=== PATIENT | male | born 1965 | race Caucasian/White ===

== ENCOUNTER 2019-08-09 10:28 | Emergency (ER) | payer MEDICARE ==
[2019-08-09] MEDS ORDERED: Ibuprofen TAB* 600 MG PO ONE (10:33)
--- NOTE | 2019-08-09 10:33 | ED ---
Upper Extremity Pain - HPI Summary HPI Summary: This pt is a 54 y/o male presenting to [facility] via EMS for right wrist pain s/p fall today. Pt reports he fell off his electric scooter today and stretched out his right arm to catch himself injuring his right wrist. Denies head strike or LOC. He currently rates his right wrist pain 7/10 in severity. Denies any other injuries today. Denies headache, back pain, neck pain. 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 PMHx: HTN, prior injuries to C-spine, left wrist fracture. Pt was started on Lisinopril a couple of months ago. He also takes Wellbutrin. Denies tobacco, drug, or alcohol use. Allergic to Clindamycin. Medications reviewed. Allergies noted. - History of Current Complaint Stated Complaint: POSS RIGHT WRIST FRACTURE PER EMS Hx Obtained From: Patient Mechanism Of Injury: Fall From Height Of: - electric scooter Onset/Duration: Started Minutes Ago, Traumatic, Still Present Timing: Lasting Minutes Severity Currently: Moderate Pain Location: Wrist - right Aggravating Factor(s): Movement Alleviating Factor(s): Nothing Associated Signs & Symptoms: Negative: Fever, Back Pain, Other - neck pain, LOC , headache - Allergies/Home Medications Allergies/Adverse Reactions: Allergies Allergy/AdvReac Type Severity Reaction Status Date / Time clindamycin Allergy Anaphylatic Verified 08/09/19 10:36 Shock Home Medications: Home Medications Lisinopril TAB* [Prinivil TAB*] 10 mg PO DAILY 08/09/19 [History Confirmed 08/09] buPROPion TAB* [Wellbutrin TAB*] 30 mg PO BID 08/09/19 [History Confirmed ] PMH/Surg Hx/FS Hx/Imm Hx Endocrine/Hematology History: Denies: Hx Diabetes Cardiovascular History: Reports: Hx Hypertension Musculoskeletal History: Reports: Hx of Fracture(s) - left wrist - Surgical History Surgical History: Yes Surgery Procedure, Year, and Place: Surgery to bilateral hands for tendinitis - Family History Known Family History: Positive: Non-Contributory - Social History Occupation: Unemployed - 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 (-) Distressed Skin: Warm, Dry HENT: Normocephalic; Atraumatic Eyes: Conjunctiva normal Neck: Musculoskeletal ROM normal neck. (-) JVD, (-) Stridor, (-) Tracheal deviation Cardio: Rhythm regular, rate normal, Heart sounds normal; Intact distal pulses; The pedal pulses are 2+ and symmetric. Radial pulses are 2+ and symmetric. (-) Murmur Pulmonary/Chest wall: Effort normal. (-) Respiratory distress, (-) Wheezes, (-) Rales Abd: Soft, (-) tenderness, (-) Distension, (-) Guarding, (-) Rebound Musculoskeletal: Slight deformity of right wrist with tenderness to palpation. Radial pulse 2+. No proximal tenderness. Lymph: (-) Cervical adenopathy Neuro: Alert, Oriented x3 Psych: Mood and affect Normal Triage Information Reviewed: Yes Vital Signs On Initial Exam: Initial Vitals Temp Pulse Resp BP Pulse Ox 98.8 F 78 18 148/104 98 08/09/19 10:31 08/09/19 10:31 08/09/19 10:31 08/09/19 10:31 08/09/19 10:31 Vital Signs Reviewed: Yes Procedures - Procedure Summary Procedure Summary: Hematoma Block Procedure Note Location: Right radius Used 10 CC of 1% lidocaine Hung fingers from the finger traps Patient tolerated the procedure well Pre and post procedure patient is neurovascular intact - Sedation Patient Received Moderate/Deep Sedation with Procedure: No - Splinting Right Upper Extremity Location: right wrist Hand-Made Type: orthoglass Splint: volar Pre-Proc Neuro Vasc Exam: normal Post-Proc Neuro Vasc Exam: normal Splint Applied by Provider: Terrence [facility] - Laboratory Lab Statement: Any lab studies that have been ordered have been reviewed, and results considered in the medical decision making process. - Radiology Right elbow XR Radiology Interpretation Completed By: Radiologist Summary of Radiographic Findings: IMPRESSION: #. Negative for joint effusion, fracture, or articular malalignment. #. Preserved joint spaces. #. Unremarkable soft tissue contours. Dr. Bess has reviewed this report. Right wrist XR Radiology Interpretation Completed By: Radiologist Summary of Radiographic Findings: IMPRESSION: #. Comminuted fracture at the distal metaphysis through articular surface of the radius with disproportionate dorsal impaction with resulting doral tilt of the distal radial articular space. #. No definitive associated fracture of the ulna evident however overlying extrinsic materal limits conspicuity of the ulnar styloid on the AP view. #. Negative for dislocation. #. Soft tissue swelling without significant focality. Dr. bess has reviewed this report. Right wrist XR s/p splint Radiology Interpretation Completed By: Radiologist Summary of Radiographic Findings: IMPRESSION: 1. Comminuted impacted intra- articular fracture of the distal radius, unchaged. 2. Displaced fracture of the ulnar styloid process. Dr. Bess has reviewed this report. Course/Dx - Course Course Of Treatment: Patient is here after falling off his electric skateboard. Patient sustained a right wrist injury. Patient had no other injuries and did not hit his head. Patient had a distal radius fracture. A hematoma block was performed and patient's fingers were hung in the finger traps. Patient had a splint applied. Patient's fracture did not greatly reduce and patient was eager for discharge. Patient will follow-up with orthopedic surgery for further management. Patient did request pain management. After patient was discharged, the pharmacist at [facility] called here to state he did a [employer]SEM[employer] request for [place] and patient regularly fills his oxycodone prescription including on July 19. Patient states he forgot that at home but the story does not seem believable as he has been filling his prescription every month and is a chronic pain patient. Patient did deny this on his visit here. - Diagnoses Provider Diagnoses: Right wrist fracture Discharge ED - Sign-Out/Discharge Documenting (check all that apply): Patient Departure - Discharge home - Discharge Plan Condition: Stable Disposition: HOME Prescriptions: Hydrocodone/Acetaminophen [Seaman 10-325 Tablet] 1 each PO Q8HR PRN #15 tablet MDD 3 tablets PRN Reason: Pain - Severe Patient Education Materials: Wrist Fracture in Adults (ED) Referrals: [facility] [Outside] Franck Fajardo MD [Medical Doctor] - Additional Instructions: Take Motrin 600 mg every 6 hours as needed for the pain. Take prescribed medications if Motrin is not working. Call and follow up with Dr. Fajardo, orthopedist, in the next 1-3 days. PLEASE RETURN TO EMERGENCY DEPARTMENT FOR ANY SEVERE PAIN IN WRIST, IF SPLINT FALLS OFF, IF FINGERS TURN NUMB, OR ANY OTHER CONCERNING SYMPTOMS. - Billing Disposition and Condition Condition: STABLE Disposition: Home - Attestation Statements Document Initiated by Ramon: Yes Documenting Scribe: Naomi Schofield Provider For Whom Scribe is Documenting (Include Credential): Terrence Bess MD Scribe Attestation: Naomi Paniagua, scribed for Terrence Bess MD on 08/09/19 at 1853. Scribe Documentation Reviewed: Yes Provider Attestation: The documentation as recorded by the Naomi gates accurately reflects the service I personally performed and the decisions made by , Terrence Bess MD Status of Scribe Document: Viewed
[2019-08-09] MEDS: HYDROcodone/ACETAMIN 5-325 MG* 1 TAB PO ONE ×2 (10:50→11:07)
[2019-08-09] MEDS ORDERED: HYDROcodone/ACETAMIN 5-325 MG* 1 TAB PO ONE (10:57)
[2019-08-09] MEDS ORDERED: Lidocaine 1% MPF ** 5 ML VIAL INJ ONE (10:57)
[2019-08-09] MEDS ORDERED: oxyCODONE TAB* 5 MG TAB PO ONE (12:03)
[2019-08-09 12:24] VITALS: BP 158/90
== END 2019-08-09 12:23 | disposition home or self-care (01) ==
LOC: ED 10:28
DX: S52.591A Other fractures of lower end of right radius, initial encounter for closed fracture (principal); S52.611A Displaced fracture of right ulna styloid process, initial encounter for closed fracture; V00.131A Fall from skateboard, initial encounter; Y93.51 Activity, roller skating (inline) and skateboarding; Y92.9 Unspecified place or not applicable; I10 Essential (primary) hypertension; Z79.899 Other long term (current) drug therapy; Z88.1 Allergy status to other antibiotic agents
CPT/HCPCS: 99282; A9270-GY

== ENCOUNTER 2019-08-20 17:39 | Emergency (ER) | payer MEDICARE ==
--- NOTE | 2019-08-20 18:02 | ED ---
Upper Extremity Pain - HPI Summary HPI Summary: Patient complains of new area of swelling and ecchymosis proximal to right forearm splint placed here at [facility] 08/09/19 for wrist fracture status post mechanical fall 08/09/19. . Denies pain at site. Also complains of ecchymotic right big toe toenail and inflammation status post same mechanical fall. Denies pain at toe. Ambulating normally. Patient missed follow-up appointment with Dr. Romano orthopedics, has new appointment on August 26. Denies new trauma, loss of sensation or function in the fingers of right hand. Fever, cough, sore throat, CP, SOB, V/V Carrillo pain, change in urine, change in BM. No anti-coag. No history of blood clots. - History of Current Complaint Chief Complaint: EDExtremityUpper Stated Complaint: CHECK RT ARM PER PT Time Seen by Provider: 08/20/19 17:54 Hx Obtained From: Patient Mechanism Of Injury: Fall From A Standing Position Timing: Constant Severity Currently: None Pain Location: Forearm Aggravating Factor(s): Nothing Alleviating Factor(s): Nothing Associated Signs & Symptoms: Positive: Swelling, Bruising - Allergies/Home Medications Allergies/Adverse Reactions: Allergies Allergy/AdvReac Type Severity Reaction Status Date / Time clindamycin Allergy Severe Anaphylatic Verified 08/15/19 14:06 Shock PMH/Surg Hx/FS Hx/Imm Hx Endocrine/Hematology History: Denies: Hx Diabetes Cardiovascular History: Reports: Hx Hypertension - on meds for, Other Cardiovascular Problems/Disorders - had stress test a few years ago due to htn History: Denies: Hx Dialysis Musculoskeletal History: Reports: Hx Arthritis - neck, shoulder, knees, feet, Hx Tendonitis - right foot, wrists, Other Musculoskeletal History - right foot microtears from injury 2 months ago Sensory History: Reports: Hx Contacts or Glasses - glasses Denies: Hx Hearing Aid Opthamlomology History: Reports: Hx Contacts or Glasses - glasses EENT History: Denies: Hx Deafness Neurological History: Reports: Hx Headaches - migraines as noted above, Hx Migraine - hx of - takes pain meds for, Other Neuro Impairments/Disorders - hand numbness from neck fxs Psychiatric History: Reports: Hx Anxiety - stressed with recent move and injury , Hx Depression - on meds for - Surgical History Surgery Procedure, Year, and Place: Surgery to bilateral hands for tendinitis- carpal tunnel 2014 Hx Anesthesia Reactions: No Infectious Disease History: No Infectious Disease History: Denies: Traveled Outside the [place] in Last 30 Days - Family History Known Family History: Positive: Non-Contributory - Social History Alcohol Use: None Substance Use Type: Reports: None Smoking Status (MU): Former Smoker Review of Systems Constitutional: Negative Eyes: Negative ENT: Negative Cardiovascular: Negative Respiratory: Negative Gastrointestinal: Negative Genitourinary: Negative Musculoskeletal: Negative Skin: Other Positive: Bruising Neurological: Negative Psychological: Normal All Other Systems Reviewed And Are Negative: Yes Physical Exam - Summary Physical Exam Summary: 9 cm x 9cm area of ecchymosis and swelling on medial forearm just proximal to right wrist splint. PMS intact distally. Normal flexion and extension of right elbow. Inflammation at proximal nail fold of the right great big toe. No evidence of purulence. Ecchymosis under toenail, no pain with palpation. Nail is solidly in place. Triage Information Reviewed: Yes Vital Signs On Initial Exam: Initial Vitals Temp Pulse Resp BP Pulse Ox 98.6 F 74 19 140/76 98 08/20/19 17:44 08/20/19 17:44 08/20/19 17:44 08/20/19 17:44 08/20/19 17:44 Vital Signs Reviewed: Yes Appearance: Positive: Well-Appearing Skin: Positive: Warm Head/Face: Positive: Normal Head/Face Inspection Eyes: Positive: Normal Neck: Positive: Supple Respiratory/Lung Sounds: Positive: Clear to Auscultation Cardiovascular: Positive: Normal Abdomen Description: Positive: Nontender Musculoskeletal: Positive: Normal Neurological: Positive: Normal Psychiatric: Positive: Normal AVPU Assessment: Alert - [place] Coma Scale Best Eye Response: 4 - Spontaneous Best Motor Response: 6 - Obeys Commands Best Verbal Response: 5 - Oriented Coma Scale Total: 15 Procedures - Sedation Patient Received Moderate/Deep Sedation with Procedure: No Diagnostics - Vital Signs Vital Signs Temp Pulse Resp BP Pulse Ox 08/20/19 17:44 98.6 F 74 19 140/76 98 - Laboratory Lab Statement: Any lab studies that have been ordered have been reviewed, and results considered in the medical decision making process. Course/Dx - Course Course Of Treatment: Patient complains of new area of swelling and ecchymosis proximal to right forearm splint placed here at [facility] 08/09/19 for wrist fracture status post mechanical fall 08/09/19. . Denies pain at site. Also complains of ecchymotic right big toe toenail and inflammation status post same mechanical fall. Denies pain at toe. Ambulating normally. Patient missed follow-up appointment with Dr. Romano orthopedics, has new appointment on August 26. Denies new trauma, loss of sensation or function in the fingers of right hand. Fever, cough, sore throat, CP, SOB, V/V Carrillo pain, change in urine , change in BM. No anti-coag. No history of blood clots. Vital signs within normal limits. Ultrasound of right upper extremity negative for DVT. Diagnosis hematoma. Right great toe diagnosis paronychia and subungual hematoma. Occurred 10 days ago. Patient refused trephination. Has no pain to toe. - Diagnoses Provider Diagnoses: Subungual hematoma of great toe of right foot, Paronychia of great toe of right foot, Traumatic hematoma of right forearm Discharge ED - Sign-Out/Discharge Documenting (check all that apply): Patient Departure - Discharge Plan Condition: Stable Disposition: HOME Prescriptions: Amoxicillin/Clavulanate TAB* [Augmentin TAB 875*] 875 mg PO BID #20 tab Referrals: No Primary Care Phys,NOPCP [Primary Care Provider] - [facility] PHYSICIAN REFERRAL [Outside] Eden Romano MD [Medical Doctor] - Additional Instructions: Call [facility] physician referral number to set up primary care. Follow-up with orthopedics Dr. Romano for right wrist fracture. Return to the ED for any new or worsening symptoms. - Billing Disposition and Condition Condition: STABLE Disposition: Home - Attestation Statements Provider Attestation: I have seen the patient with the ABI and agree with the plan and documentation below except as noted: to 2 mL forearm fracture presents for follow-up given worsening swelling and hematoma. Negative DVT study, patient has new appointment with orthopedics. Jame Brower MD
[2019-08-20] MEDS ORDERED: Amoxicillin/Clavulanate TAB* 875 MG PO ONE (19:46)
[2019-08-20 20:11] VITALS: BP 143/58
== END 2019-08-20 20:10 | disposition home or self-care (01) ==
LOC: ED 17:39
DX: S90.111A Contusion of right great toe without damage to nail, initial encounter (principal); L03.031 Cellulitis of right toe; S50.11XA Contusion of right forearm, initial encounter; R60.9 Edema, unspecified; I10 Essential (primary) hypertension; Z87.891 Personal history of nicotine dependence; W19.XXXA Unspecified fall, initial encounter; Y92.9 Unspecified place or not applicable
CPT/HCPCS: 99282

== ENCOUNTER 2019-08-26 09:20 | Day surgery (SDC) | payer MEDICARE ==
[~2019-08-26 09:20] MED LIST: Buffered Lidocaine 1% SYRIN* 1 ML/SYRINGE INTRADERM ONE; Lactated Ringers 1000 ML Bag* 1,000 ML IV SCH
[2019-08-26] MEDS ORDERED: ceFAZolin 2 GM PREMIX in ORs 2 GM/50 ML BAG ONE (09:28)
[2019-08-26] MEDS ORDERED: Propofol* 10 MG/ML 20 ML BTL ONE ×2 (10:54→12:21)
[2019-08-26] MEDS ORDERED: Lidocaine 2% PF * 5 ML VIAL ONE ×2 (10:55→11:29)
[2019-08-26] MEDS ORDERED: fentaNYL* 50 MCG/ML 2 ML VIAL (100 MCG VIAL) ONE (11:02)
[2019-08-26] MEDS ORDERED: Midazolam* 1 MG/ML 2 ML VIAL (2 MG) ONE (11:02)
[2019-08-26] MEDS ORDERED: Lidocaine 1% INJ* 10 MG/ML 30 ML SDV ONE (11:07)
[2019-08-26] MEDS ORDERED: Lidocaine 2% PF* 10 ML AMP ONE (11:14)
[2019-08-26] MEDS ORDERED: ROPIVACAINE 5 MG/ML 30 ML BTL (0.5%) ONE (11:15)
[2019-08-26] MEDS ORDERED: Acetaminophen TAB* 325 MG PO PRN (12:11)
[2019-08-26] MEDS ORDERED: Naloxone* 0.4 MG/ML 1 ML VIAL IV PRN (12:11)
[2019-08-26] MEDS ORDERED: DiMENhydriNATE IV* 50 MG/ML VIAL IV PUSH PRN (12:11)
[2019-08-26] MEDS ORDERED: fentaNYL* 50 MCG/ML 2 ML VIAL (100 MCG VIAL) IV PRN (12:11)
[2019-08-26] MEDS ORDERED: oxyCODONE TAB* 5 MG TAB PO PRN (12:11)
[2019-08-26] MEDS ORDERED: Propofol* 0 MG/0 ML BTL ONE (12:20)
[2019-08-26] MEDS ORDERED: Ketorolac INJ* 30 MG/ML 1 ML VIAL ONE (12:21)
[2019-08-26] MEDS ORDERED: Ondansetron INJ* 2 MG/ML VIAL ONE (12:21)
[2019-08-26 13:43] VITALS: BP 95/47
--- NOTE | 2019-08-26 15:11 | OP ---
DATE OF OPERATION: 08/26/19 [facility] DATE OF : 69 SURGEON: Eden Romano MD. CORE CUTTER AND REAMER: KELSIE Gilman. ANESTHESIA: Block. PRE-OP DIAGNOSIS: Right distal radius fracture, comminuted and displaced. POST-OP DIAGNOSIS: Right distal radius fracture, comminuted and displaced. OPERATIVE PROCEDURE: Open reduction internal fixation of the right distal radius. ESTIMATED BLOOD LOSS: Zero. TOURNIQUET TIME: About 45 minutes. INDICATIONS FOR PROCEDURE: Gamal is a 54-year-old male who fell and injured his right wrist. He has a distal radius fracture, which is intraarticular, comminuted, and displaced. He presents for ORIF. DESCRIPTION OF PROCEDURE: The patient was brought to the operating room, was given a block anesthetic and a sedation anesthetic and placed in the supine position on the operating table with a tourniquet around his right upper arm. The skin of his right upper extremity was prepped and draped in the usual sterile fashion. A longitudinal incision was made over the FCR tendon. We dissected through the subcutaneous tissue and incised the FCR tendon sheath both superficial and deep. The FPL muscle and tendon were then retracted ulnarly. The pronator quadratus was incised and subperiosteally dissected off of the fracture fragments. There were multiple intraarticular fracture fragments. The fracture had started to heal and there was a bit of callus and this was debrided with a rongeur. The fracture fragments were then reduced and secured with a 7-hole plate from the [employer] 2.4 variable angle distal radius set with 6 distal and 4 proximal screws. There was extension of the fracture proximally, so a longer than normal plate was used for proximal fixation. Additionally, at least 3 separate intraarticular fragments were secured with separate screws. The wound was copiously irrigated with saline. The position of the fracture fragments and hardware were checked on the C-arm in the AP and lateral views and found to be satisfactory. The pronator quadratus was repaired over the plate with 2-0 Vicryl suture. The FCR tendon sheath was also repaired with 2-0 Vicryl suture and the skin edges reapproximated with 4-0 nylon suture. The wound was dressed with Xeroform, 4x4, Webril, and a volar splint. The patient tolerated the procedure well and was brought to the recovery room in good condition. [id number] #: [id number] [facility] SYSTEM[facility]anci
== END 2019-08-26 13:37 | disposition home or self-care (01) ==
LOC: OREAST 09:20
PROVIDERS: ATTEND Orthopaedic Surgery
DX: S52.571A Other intraarticular fracture of lower end of right radius, initial encounter for closed fracture (principal); G62.9 Polyneuropathy, unspecified; W00.0XXA Fall on same level due to ice and snow, initial encounter; Y92.9 Unspecified place or not applicable; I10 Essential (primary) hypertension; F41.8 Other specified anxiety disorders; Z87.891 Personal history of nicotine dependence; G89.18 Other acute postprocedural pain
CPT/HCPCS: 76000; C1713; C1776; J0690; J1885; J2001; J2250; J2405; J2704; J2795; J3010